=== PATIENT | male | born 2005 | race Caucasian/White ===

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

== ENCOUNTER 2024-09-10 16:01 | Emergency (ER) | payer OTHER ==
--- NOTE | 2024-09-10 16:51 | ED ---
Recheck HPI - General Source: patient, RN notes reviewed Mode of arrival: ambulatory Limitations: no limitations - History of Present Illness Onset/Timin -: days(s) <Artem Almeida - Last Filed: 09/10/24 16:50> <Perry Ervin - Last Filed: 09/21/24 20:35> - General Chief Complaint: Recheck/Abnormal Lab/Rx Stated Complaint: Covid + Time Seen by Provider: 09/10/24 16:14 - History of Present Illness Initial Comments: Quick note: This is a 18-year-old male presenting with sick symptoms x 4 days. Patient states he recently tested positive for COVID. Endorses chills, fatigue, congestion, sweating and loss of taste/smell. Denies fever, chest pain, dyspnea, abdominal pain, N/V/D. (Artem Almeida) 18-year-old male presenting with chief complaint of URI-like symptoms. Ongoing for about 4 to 5 days. He admits to chills, fatigue, congestion, cough, loss of taste and smell. His mother also has similar symptoms. He recently tested positive for COVID at home, he would like a repeat test here. No chest pain, difficulty breathing, abdominal pain, fever, nausea, vomiting, diarrhea. (Perry Ervin) - Related Data Previous Rx's Medication Instructions Recorded Fluticasone Propionate [Flonase 1 - 2 spray EA NOSTRIL DAILY 5 09/06/18 Allergy Relief] Days ml methylPREDNISolone Dose Pack 4 mg PO DIRECTED #21 package 09/06/18 [Medrol Dose Pack] Allergies Allergy/AdvReac Type Severity Reaction Status Date / Time amoxicillin AdvReac Unknown Verified 09/10/24 16:48 Penicillins AdvReac Unknown Verified 09/10/24 16:48 Review of Systems ROS Other: All systems not noted in ROS Statement are negative. <Artem Almeida - Last Filed: 09/10/24 16:50> ROS Other: All systems not noted in ROS Statement are negative. <Perry Ervin - Last Filed: 09/21/24 20:35> ROS Statement: Those systems with pertinent positive or pertinent negative responses have been documented in the HPI. Past Medical History Past Medical History: No Reported History History of Any Multi-Drug Resistant Organisms: None Reported Past Surgical History: No Surgical Hx Reported Past Psychological History: ADD/ADHD Smoking Status: Never smoker Past Alcohol Use History: None Reported Past Drug Use History: None Reported <Artem Almeida - Last Filed: 09/10/24 16:50> General Exam Limitations: no limitations <Artem Almeida - Last Filed: 09/10/24 16:50> Limitations: no limitations General appearance: alert, in no apparent distress Head exam: Present: atraumatic, normocephalic, normal inspection Eye exam: Present: normal appearance, EOMI ENT exam: Present: normal exam, normal oropharynx, mucous membranes moist Neck exam: Present: normal inspection. Absent: meningismus Respiratory exam: Present: normal lung sounds bilaterally. Absent: respiratory distress, wheezes, rales, rhonchi, stridor Cardiovascular Exam: Present: regular rate, normal rhythm, normal heart sounds. Absent: systolic murmur, diastolic murmur, rubs, gallop, clicks Neurological exam: Present: alert, oriented X3 Psychiatric exam: Present: normal affect, normal mood Skin exam: Present: warm, dry <Perry Ervin - Last Filed: 09/21/24 20:35> - General Exam Comments Initial Comments: Visual Physical Exam Vital signs reviewed General: Well-appearing, nontoxic, no acute distress. Head: Normocephalic, atraumatic Eyes: PERRLA, EOMI ENT: Airway patent Chest: Nonlabored breathing Skin: No visual rash, normal skin tone Neuro: Alert and oriented 3 Musculoskeletal: No gross abnormalities (Artem Almeida) Course Vital Signs 09/10/24 09/10/24 16:46 20:23 Temperature 99 F 98.4 F Pulse Rate 102 H 88 Respiratory 24 18 Rate Blood Pressure 135/57 109/75 O2 Sat by Pulse 99 98 Oximetry Medical Decision Making <Artem Almeida - Last Filed: 09/10/24 16:50> <Perry Ervin - Last Filed: 09/21/24 20:35> - Medical Decision Making I completed the quick note portion of this chart signed ANA Mckinney (Artem Almeida) Was pt. sent in by a medical professional or institution ([facility], [employer], urgent care, hospital, or penitentiary...) When possible be specific @ -No Did you speak to anyone other than the patient for history (EMS, parent, family, police, friend...)? What history was obtained from this source @ -No Did you review nursing and triage notes (agree or disagree)? Why? @ -I reviewed and agree with nursing and triage notes Were old charts reviewed (outside hosp., previous admission, EMS record, old EKG, old radiological studies, urgent care reports/EKG's, penitentiary records)? Report findings @ -No old charts were reviewed Differential Diagnosis (chest pain, altered mental status, abdominal pain women, abdominal pain men, vaginal bleeding, weakness, fever, dyspnea, syncope, headache, dizziness, GI bleed, back pain, seizure, CVA, palpatations, mental health, musculoskeletal)? @ -Differential includes COVID, influenza, RSV, other viral process, this is not an all-inclusive list EKG interpreted by me (3pts min.). @ -As above X-rays interpreted by me (1pt min.). @ -Chest x-ray shows no acute process CT interpreted by me (1pt min.). @ -None done U/S interpreted by me (1pt. min.). @ -None done What testing was considered but not performed or refused? (CT, X-rays, U/S, labs)? Why? @ -None What meds were considered but not given or refused? Why? @ -None Did you discuss the management of the patient with other professionals (professionals i.e. , PA, [employer], lab, RT, psych nurse, social science professor, chinese language professor, teacher, correctional probation officer, case repairer)? Give summary @ -No Was smoking cessation discussed for >3mins.? @ -No Was critical care preformed (if so, how long)? @ -No Were there social determinants of health that impacted care today? How? (Homelessness, low income, unemployed, alcoholism, drug addiction, transportation, low edu. Level, literacy, decrease access to med. care, assisted, rehab)? @ -No Was there de-escalation of care discussed even if they declined (Discuss DNR or withdrawal of care, Hospice)? DNR status @ -No What co-morbidities impacted this encounter? (DM, HTN, Smoking, COPD, CAD, Cancer, CVA, ARF, Chemo, Hep., AIDS, mental health diagnosis, sleep apnea, morbid obesity)? @ -None Was patient admitted / discharged? Hospital course, mention meds given and route, prescriptions, significant lab abnormalities, going to OR and other pertinent info. @ -18-year-old male presenting with URI-like symptoms. Patient tested positive for COVID at home. Workup initiated by triage. He is positive for COVID-19 here. Chest x-ray shows no acute process. Patient is later evaluated by myself. Patient is educated on today's findings and supportive management at home. Follow-up with PCP. Report back to ER with any new or worsening symptoms. Discussed return parameters and answered all questions. Patient conveyed verbal understanding and agreed to the plan. My attending is Dr. Coronel Undiagnosed new problem with uncertain prognosis? @ -No Drug Therapy requiring intensive monitoring for toxicity (Heparin, Nitro, Insulin, Cardizem)? @ -No Were any procedures done? @ -No Diagnosis/symptom? @ -COVID-19 Acute, or Chronic, or Acute on Chronic? @ -Acute Uncomplicated (without systemic symptoms) or Complicated (systemic symptoms)? @ -Uncomplicated Side effects of treatment? @ -No Exacerbation, Progression, or Severe Exacerbation? @ -No Poses a threat to life or bodily function? How? (Chest pain, [place], AR, pneumonia, PE, COPD, DKA, ARF, appy, cholecystitis, CVA, Diverticulitis, Homicidal, Suicidal, threat to staff... and all critical care pts) @ -Low likelihood (Perry Ervin) - Lab Data Lab Results 09/10/24 Range/Units 17:37 Influenza Type A (PCR) Not Detected (Not Detectd) Influenza Type B (PCR) Not Detected (Not Detectd) RSV (PCR) Not Detected (Not Detectd) SARS-CoV-2 (PCR) Detected A (Not Detectd) Disposition <Artem Almeida - Last Filed: 09/10/24 16:50> Is patient prescribed a controlled substance at d/c from ED?: No Time of Disposition: 18:46 <Perry Ervin - Last Filed: 09/21/24 20:35> Clinical Impression: COVID-19 Disposition: HOME SELF-CARE Condition: Good Instructions (If sedation given, give patient instructions): COVID-19 (Coronavirus Disease 2019) (ED) Additional Instructions: Follow-up with your PCP. Report back to ER with any new or worsening symptoms. Referrals: Michaela Scott MD [Primary Care Provider] - 1-2 days
--- NOTE | 2024-09-10 17:42 | XR ---
EXAMINATION TYPE: XR chest 2V DATE OF EXAM: 09/10/2024 5:29 PM COMPARISON: Chest radiographs from 09/06/2018. CLINICAL INDICATION: Male, 18 years old with history of Sick symptoms; [facility] TECHNIQUE: XR chest 2V Frontal and lateral views of the chest. FINDINGS: Lungs/Pleura: There is no evidence of pleural effusion, focal consolidation, or pneumothorax. Pulmonary vascularity: Unremarkable. Heart/mediastinum: Cardiomediastinal silhouette is unremarkable. Musculoskeletal: No acute osseous pathology. IMPRESSION: No acute cardiopulmonary disease/process. [facility], , 09/10/2024 5:40 PM
[2024-09-10 20:24] VITALS: BP 109/75; PULSE 88; RESP 18; TEMP 98.4
== END 2024-09-10 19:17 | disposition home or self-care (01) ==
LOC: EC 16:01
DX: U07.1 COVID-19 (principal); Z88.0 Allergy status to penicillin
CPT/HCPCS: 71046; 87636; 99283